=== PATIENT | male | born 1950 | race Asian ===

== ENCOUNTER 2018-08-14 06:52 | Day surgery (SDC) | payer OTHER ==
[2018-08-14] MEDS ORDERED: PROPOFOL 20 ML (07:48)
[2018-08-14] MEDS ORDERED: FENTAnyl 50 MCG/ML VIAL (07:48)
[2018-08-14] MEDS ORDERED: ONDANSETRON 4 MG INJ IV (08:00)
== END 2018-08-14 12:42 | disposition home or self-care (01) ==
LOC: GIL 06:52
DX: R19.5 Other fecal abnormalities (principal); C18.9 Malignant neoplasm of colon, unspecified; K29.50 Unspecified chronic gastritis without bleeding; D12.4 Benign neoplasm of descending colon; K57.30 Diverticulosis of large intestine without perforation or abscess without bleeding; K64.0 First degree hemorrhoids; I10 Essential (primary) hypertension; E03.9 Hypothyroidism, unspecified
CPT/HCPCS: 43239; 88305; 88312